=== PATIENT | male | born 1935 | race Caucasian/White ===

== ENCOUNTER 2016-06-23 12:30 | Inpatient (IN) ==
[2016-06-17 09:31] LABS: MANUAL DIFF NEEDED? NO
[2016-06-17 09:31] LABS: URINE MICRO REVIEW NEEDED? NO; URINE SOURCE CLEAN CATCH
[2016-06-17 09:37] LABS: BILIRUBIN URINE NEGATIVE (NEGATIVE); BLOOD URINE NEGATIVE (NEGATIVE); COLOR STRAW; GLUCOSE URINE NEGATIVE (NEGATIVE); LEUKOCYTES URINE NEGATIVE (NEGATIVE); NITRITE URINE NEGATIVE (NEGATIVE); PROTEIN URINE NEGATIVE (NEGATIVE); SP GRAVITY URINE 1.007; TURBIDITY URINE CLEAR (CLEAR); UROBILINOGEN URINE NORMAL (NORMAL)
[2016-06-17 09:39] LABS: UR EPITHELIAL CELLS <10 /HPF (<10); URINE BACTERIA NEGATIVE /HPF; URINE RBC <10 /HPF (<10); URINE WBC <10 /HPF (<10)
[2016-06-17 09:40] LABS: BASO% 0.3 % (0.0-0.8); EOS# 0.28 X1000 (0.0-0.7); HEMATOCRIT 43.3 % (42.0-52.0); HEMOGLOBIN 13.5 g/dL (14.0-18.0); IMM GRAN# 0.03 X1000 (0.0-0.04); IMM GRAN% 0.4 % (0.0-0.5); LYMPH# 2.31 X1000 (1.2-3.4); LYMPH% 32.8 % (20.5-51.1); MCH 25.6 PG (27-31); MCHC 31.2 g/dL (33-37); MONO# 0.69 X1000 (0.11-0.59); MONO% 9.8 % (1.7-9.3); MPV 10.6 FL (7.4-10.4); NEUT% 52.7 % (42.2-75.2); PLT 190 X1000 (130-400); RBC 5.28 XMIL (4.7-6.1)
[2016-06-17 09:45] LABS: INR 1.05; PROTIME 11.1 Seconds (9.2-11.7); PTT 25.9 Seconds (22.0-36.0)
[2016-06-17 10:05] LABS: CALCIUM 10.6 mg/dL (8.8-10.2); POTASSIUM 4.3 mmol/L (3.5-5.1)
[2016-09-27 14:55] LABS: URINE MICRO REVIEW NEEDED? NO; URINE SOURCE CLEAN CATCH
[2016-09-27 14:57] LABS: MANUAL DIFF NEEDED? NO
[2016-09-27 15:03] LABS: BILIRUBIN URINE NEGATIVE (NEGATIVE); BLOOD URINE NEGATIVE (NEGATIVE); COLOR YELLOW; GLUCOSE URINE NEGATIVE (NEGATIVE); LEUKOCYTES URINE NEGATIVE (NEGATIVE); NITRITE URINE NEGATIVE (NEGATIVE); PH URINE 6.5; PROTEIN URINE NEGATIVE (NEGATIVE); SP GRAVITY URINE 1.009; TURBIDITY URINE CLEAR (CLEAR); UR EPITHELIAL CELLS <10 /HPF (<10); URINE BACTERIA NEGATIVE /HPF; URINE RBC <10 /HPF (<10); URINE WBC <10 /HPF (<10); UROBILINOGEN URINE NORMAL (NORMAL)
[2016-09-27 15:07] LABS: BASO% 0.2 % (0.0-0.8); EOS# 0.19 X1000 (0.0-0.7); EOS% 3.1 % (0.0-10.0); HEMATOCRIT 43.6 % (42.0-52.0); HEMOGLOBIN 13.7 g/dL (14.0-18.0); LYMPH# 1.83 X1000 (1.2-3.4); LYMPH% 30.3 % (20.5-51.1); MCH 24.3 PG (27-31); MCHC 31.4 g/dL (33-37); MCV 77.3 FL (81-99); MONO% 9.9 % (1.7-9.3); MPV 11.1 FL (7.4-10.4); NEUT% 56.5 % (42.2-75.2); PLT 206 X1000 (130-400); RBC 5.64 XMIL (4.7-6.1)
[2016-09-27 15:13] LABS: INR 1.06; PROTIME 11.2 Seconds (9.2-11.7)
[2016-09-27 15:48] LABS: CALCIUM 10.1 mg/dL (8.8-10.2); POTASSIUM 4.4 mmol/L (3.5-5.1)
[2016-09-29] MEDS ORDERED: COLACE ONE (06:55)
[2016-09-29] MEDS ORDERED: LYRICA ONE (06:55)
[2016-09-29] MEDS ORDERED: PEPCID ONE (06:55)
[2016-09-29] MEDS ORDERED: REGLAN ONE (06:55)
[2016-09-29] MEDS ORDERED: CELEBREX ONE (06:56)
[2016-09-29] MEDS ORDERED: LR 1,000 ML ONE ×2 (06:56→10:53)
[2016-09-29] MEDS ORDERED: VANCOMYCIN 1 GM/NS 1 GM/250 ML IVPB ONE (06:56)
[2016-09-29] MEDS ORDERED: TOPROL XL ONE (07:20)
[2016-09-29] MEDS: TOPROL XL PO SCH (07:24)
[2016-09-29] MEDS ORDERED: CYKLOKAPRON 1,000 MG/NS 1,000 MG/100 ML IVPB ONE (07:50)
[2016-09-29] MEDS ORDERED: MARCAINE 0.25% PF/EPI 1:200,000 ONE (07:50)
[2016-09-29] MEDS ORDERED: TORADOL ONE (07:50)
[2016-09-29] MEDS ORDERED: SODIUM CHLORIDE 0.9% ONE (07:50)
[2016-09-29] MEDS ORDERED: NEOSPORIN G.U. IRRIGANT ONE (07:51)
[2016-09-29] MEDS ORDERED: EXPAREL 1.3% ONE (07:51)
[2016-09-29] MEDS ORDERED: NAROPIN 0.5% ONE (07:56)
[2016-09-29] MEDS: VERSED ONE ×2 (08:05→08:06)
[2016-09-29] MEDS ORDERED: NEURONTIN PO SCH ×2 (09:00→21:00)
[2016-09-29 09:17] LABS: URINE MICRO REVIEW NEEDED? NO; URINE SOURCE CATH
[2016-09-29 09:35] LABS: BILIRUBIN URINE NEGATIVE (NEGATIVE); BLOOD URINE NEGATIVE (NEGATIVE); COLOR YELLOW; GLUCOSE URINE NEGATIVE (NEGATIVE); LEUKOCYTES URINE NEGATIVE (NEGATIVE); NITRITE URINE NEGATIVE (NEGATIVE); PH URINE 6.5; PROTEIN URINE NEGATIVE (NEGATIVE); SP GRAVITY URINE 1.017; TURBIDITY URINE CLEAR (CLEAR); UROBILINOGEN URINE NORMAL (NORMAL)
[2016-09-29 09:40] LABS: UR EPITHELIAL CELLS <10 /HPF (<10); URINE BACTERIA NEGATIVE /HPF; URINE RBC <10 /HPF (<10); URINE WBC <10 /HPF (<10)
[2016-09-29] MEDS ORDERED: NS 1,000 ML ONE (10:40)
[2016-09-29] MEDS ORDERED: DIPRIVAN 1% ONE (10:46)
[2016-09-29] MEDS ORDERED: ROBINUL ONE (10:52)
[2016-09-29] MEDS ORDERED: NEOSTIGMINE ONE (10:52)
[2016-09-29] MEDS ORDERED: SODIUM CHLORIDE 0.9% 30 ML ONE (10:52)
[2016-09-29] MEDS ORDERED: ZOFRAN ONE (10:52)
[2016-09-29] MEDS ORDERED: NEO-SYNEPHRINE ONE (10:52)
[2016-09-29] MEDS ORDERED: LUBRIFRESH PM OPH OINTMENT ONE (10:52)
[2016-09-29] MEDS ORDERED: NORCURON ONE (10:52)
[2016-09-29] MEDS ORDERED: PIGGYBACK SET 7393 ONE (10:53)
[2016-09-29] MEDS ORDERED: NS 250 ML ONE (10:53)
[2016-09-29] MEDS ORDERED: XYLOCAINE-MPF 2% ONE (10:53)
[2016-09-29] MEDS ORDERED: DECADRON ONE (10:53)
[2016-09-29] MEDS ORDERED: QUELICIN (DOSE) ONE (10:53)
--- NOTE | 2016-09-29 10:53 | OPERATIVE NOTE ---
PROCEDURE DATE: 09/29/2016 DATE OF OPERATION: 09/29/2016. 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 PROCEDURE PERFORMED: Left reverse shoulder arthroplasty with DePuy Delta Xtend size 12 press-fit stem, a 42+ 6 humeral cup, and a 43 eccentric Glenosphere and a standard metaglene. SURGEON: Dr. Fran Gomez. CITY ATTORNEY: JIM Barboza. SECOND COLOR STRAINING BAG WASHER: MACO York. ANESTHESIA: General. IV FLUIDS: 1200 mL lactated Ringer's. ESTIMATED BLOOD LOSS: 100 mL. COMPLICATIONS: None. INDICATION: The patient is a 80-year-old male with chronic history of worsening pain and discomfort of the left shoulder. His pain has progressed to affect his activities of daily living. X-rays did reveal underlying degenerative arthritis. Recommendation to proceed with left reverse shoulder arthroplasty was offered. Risks and benefits of surgery were explained, including the risks of anesthesia, , bleeding, infection, failure to relieve pain, postoperative stiffness, nerve injury, blood clots, and other imponderables. All questions answered. Patient's family wished to proceed with surgery. DETAILS OF OPERATION: The patient was taken to the operating room and placed supine on the operating table. Once adequate anesthesia was obtained, patient was placed in a semi-Kiran beach- chair position. The left shoulder was subsequently prepped and draped in usual sterile fashion. A standard deltopectoral incision was made with the skin knife. Hemostasis was obtained using electrocautery. The deltopectoral interval was then developed and the cephalic vein was retracted laterally with the deltoid. The clavipectoral fascia was then elevated and a Edmonds retractor was placed deep to the conjoined tendon. Attention then turned to the subscapularis. A stay suture was placed. Incision to release the subscapularis tendon was then performed. The shoulder was then introduced anteriorly. Further release of the posterior superior aspect of the rotator cuff was performed. A starting reamer was then passed in the intramedullary canal. This was followed by sequential reaming up to size 12. After this had been performed, an intramedullary guide was then placed and the cutting block for the humeral head was pinned in position. The proximal humeral head was then resected in standard fashion. A protective disk was then placed. Attention was then turned to the glenoid. Circumferential dissection was performed with a deep knife. A guide pin was then placed in position. This was confirmed and had good position of the guide. After this had been performed, reaming was then conducted in standard fashion. Central hole was then dilated. The wound was copiously irrigated with antibiotic pulsatile lavage. A standard metaglene was then impacted in position. Two locking screws were placed and two nonlocking screws had good purchase of the metaglene. The wound was copiously irrigated once again. This was followed by a 43 eccentric Glenosphere with the eccentricity placed inferiorly. After this had been performed, attention was then turned to the proximal humerus where an intramedullary guide was then placed in position and the proximal humerus was reamed. The intramedullary canal was copiously irrigated with antibiotic pulsatile lavage. This was followed by a Delta Xtend size 12 cement stem with the modular eccentric epiphysis HILL coated. It had excellent purchase. Trial cup size was then performed at 42+ 6, had excellent stability in range of motion. The trial cup was removed. Copious irrigation then performed once again with antibiotic pulsatile lavage. This was followed by a 42+ 6 humeral cup, and the shoulder was reduced, carried through range of motion. Excellent stability in range of motion. The subscapularis tendon, inferior aspect of it, was then repaired with #2 FiberWire. It was carried through range of motion and had good repair. The wound was copiously irrigated once again. Exparel was placed in deep soft tissue, as well as subcutaneous tissue. The 2-0 Vicryl was used to repair the subcutaneous tissue, followed by running 2-0 Prolene. Benzoin Steri-Strips applied. Adaptic, sterile 4 x 4s, ABD pad, and tape applied to the left shoulder followed by shoulder immobilizer. All counts were correct. Patient tolerated the procedure well and was transferred to the recovery room in stable condition. cc: Fran Gomez MD
[2016-09-29] MEDS: NS 1,000 ML IV SCH (11:50)
[2016-09-29] MEDS ORDERED: MORPHINE IV PRN (12:13)
[2016-09-29] MEDS ORDERED: ZOFRAN PO PRN (12:15)
[2016-09-29] MEDS ORDERED: MILK OF MAGNESIA PO PRN (12:15)
--- NOTE | 2016-09-29 13:01 | Diag Imaging Result Document ---
PROCEDURE NAME: SHOULDER 1 VIEW LEFT - 09/29/2016 PLAIN RADIOGRAPH OF THE LEFT SHOULDER, ONE VIEW: COMPARISON: None available. FINDINGS: There has been a recent left shoulder arthroplasty. The arthroplasty hardware is in the expected position. There is no evidence of periprosthetic fracture. IMPRESSION: Satisfactory postoperative left shoulder.
--- NOTE | 2016-09-29 14:02 | HISTORY AND PHYSICAL ---
CHIEF COMPLAINT: Left shoulder pain. HISTORY OF PRESENT ILLNESS: Mr. Belcher is a 80-year-old white male who has experienced progressive left shoulder pain for some time. His pain is exacerbated with activities. Radiographic evaluation of the left shoulder reveals findings consistent with advanced degenerative joint disease. Despite conservative therapy, he still has a significant amount of pain and limitations regarding his activities of daily living. He will be admitted at this time for a left reverse total shoulder arthroplasty. PRIMARY CARE PROVIDER: Dr. Yoandy Maldonado. ALLERGIES: Penicillin. PAST MEDICAL HISTORY: 1. Osteoarthritis. 2. Hypertension. 3. Gouty arthritis. 4. Gastroesophageal reflux disease. 5. Allergic rhinitis. 6. Coronary artery disease. 7. Chronic kidney disease. 8. Dyslipidemia. 9. Non-insulin dependent diabetes mellitus. SURGICAL HISTORY: 1. Endovascular AAA repair. 2. Right total shoulder arthroplasty. 3. Bilateral total knee arthroplasties. 4. Lumbar fusion. 5. Bilateral carpal tunnel releases. SOCIAL HISTORY: The patient maintains a home with his . He is a remote smoker. REVIEW OF SYSTEMS: HEENT: He is treated for allergic rhinitis. No history of cerebrovascular disease. Cardiac: He has a history of coronary artery disease and hypertension. Pulmonary: The patient is a remote smoker. No reported chronic lung disease. Abdominal: The patient is treated for gastroesophageal reflux disease. Genitourinary: He has a history of chronic kidney disease. No recent kidney or bladder infection or dysfunction. Musculoskeletal: He is treated for osteoarthritis. He has had multiple joint replacements and he also has a history of gout. He is here today for his degenerative left shoulder. Other: He is treated for non-insulin dependent diabetes mellitus and dyslipidemia. PHYSICAL EXAMINATION: The patient is resting comfortably in bed. He is articulate and able answer all questions fully. HEENT: Head is normocephalic and atraumatic. Pupils are equal, round, react to light. Nares patent. Throat without exudate. NECK: Supple. HEART: Regular rate and rhythm. No murmurs, gallops, or rubs. LUNGS: Clear to auscultation bilaterally. ABDOMEN: Round. Bowel sounds are present. It is nontender. GENITOURINARY: Not examined. NEUROLOGICAL: Gross motor function is intact as well as sensation to soft touch. MUSCULOSKELETAL: Left shoulder, no gross deformity, edema or ecchymosis. He has a good peripheral pulse. IMPRESSION: Degenerative joint disease of left shoulder. PLAN: Left reverse total shoulder arthroplasty. The risks and benefits of surgery were explained to the patient including the risk of anesthesia, , bleeding, infection, damage to tendons, ligaments, nerves, blood vessels, the possibility of blood clots and other imponderables were discussed, and he wishes to proceed with operative management at this time. Dictated by JIM Bonner for Fran Gomez MD cc: JIM Bonner MD
[2016-09-29] MEDS: DIABETA PO SCH ×2 (14:42→17:52)
[2016-09-29] MEDS ORDERED: CYKLOKAPRON 1,000 MG in NS 100 ML IV ONE (14:45)
[2016-09-29] MEDS: ASPIRIN PO SCH (14:50)
[2016-09-29] MEDS: NORVASC PO SCH (14:50)
[2016-09-29] MEDS: NEXIUM PO SCH (14:50)
[2016-09-29] MEDS: ALDACTONE PO SCH (14:50)
[2016-09-29] MEDS: LASIX PO SCH (14:50)
[2016-09-29] MEDS: LOFIBRA PO SCH (14:50)
[2016-09-29] MEDS: ZYLOPRIM PO SCH (14:50)
[2016-09-29] MEDS: SINGULAIR PO SCH (14:50)
[2016-09-29] MEDS ORDERED: CHLORASEPTIC SPRAY TOP PRN (15:09)
[2016-09-29] MEDS: TYLENOL PO SCH ×2 (16:28→20:30)
[2016-09-29] MEDS ORDERED: VANCOMYCIN 1 GM/NS 1 GM/250 ML IVPB IV ONE (19:30)
[2016-09-29] MEDS: PERIDEX MT SCH (20:32)
[2016-09-29] MEDS ORDERED: LIPITOR PO SCH (21:00)
[2016-09-30] MEDS: NS 1,000 ML IV SCH (01:00)
[2016-09-30] MEDS: TYLENOL PO SCH (05:31)
[2016-09-30 05:59] LABS: HEMATOCRIT 36.3 % (42.0-52.0); HEMOGLOBIN 11.2 g/dL (14.0-18.0)
[2016-09-30] MEDS: OXY IR PO PRN ×3 (06:23→11:22)
[2016-09-30 06:42] LABS: POTASSIUM 4.6 mmol/L (3.5-5.1)
--- NOTE | 2016-09-30 07:11 | PROGRESS NOTE ---
DATE: 09/30/2016 SUBJECTIVE: The patient is a pleasant, 80-year-old male who is 1 day status post left reverse shoulder arthroplasty. He is currently resting comfortably. He has no significant complaints. PHYSICAL EXAMINATION: Patient's left upper extremity dressing is intact. He is neurovascularly intact throughout. He is able to flex and extend his thumb and fingers. He has good limo driver strength. LABORATORY DATA: His hemoglobin is 11.2, hematocrit is 36.3. IMPRESSIONS: Postoperative day #1, status post left reverse shoulder arthroplasty. PLAN: At this point, we will change his dressing, discontinue his Mclaughlin, and Hep-Lock his IV. We will plan on discharging home after mobilizing with physical therapy. We will arrange for home physical therapy. Patient will follow up in 10 or 12 days. cc: Fran Gomez MD
[2016-09-30 07:36] VITALS: BP 123/59
[2016-09-30] MEDS ORDERED: NEURONTIN PO SCH (09:00)
[2016-09-30] MEDS ORDERED: DECADRON IV ONE (09:00)
[2016-09-30] MEDS: PERIDEX MT SCH (09:04)
[2016-09-30] MEDS: SINGULAIR PO SCH (09:04)
[2016-09-30] MEDS: LOFIBRA PO SCH (09:04)
[2016-09-30] MEDS: LASIX PO SCH (09:05)
[2016-09-30] MEDS: NORVASC PO SCH (09:05)
[2016-09-30] MEDS: ALDACTONE PO SCH (09:05)
[2016-09-30] MEDS: ASPIRIN PO SCH (09:05)
[2016-09-30] MEDS: DIABETA PO SCH (09:05)
[2016-09-30] MEDS: TOPROL XL PO SCH (09:05)
[2016-09-30] MEDS: ZYLOPRIM PO SCH (09:06)
[2016-09-30] MEDS: NEXIUM PO SCH (09:06)
== END 2016-09-30 11:35 | disposition home health service (06) ==
LOC: SURHOLD 09-29 05:02 → 4N 09-29 09:03
PROVIDERS: ADMIT Orthopaedic Surgery Adult Reconstructive Orthopaedic Surgery; ATTEND Orthopaedic Surgery Adult Reconstructive Orthopaedic Surgery